=== PATIENT | female | born 1975 | race African-American/Black ===

== ENCOUNTER 2017-07-26 12:29 | Emergency (ER) | payer MEDICAID, OTHER ==
[~2017-07-26] VITALS: Ht 165.1 cm; Wt 86.2 kg
[2017-07-26] MEDS ORDERED: IBUPROFEN600 MG ORAL (13:25)
[2017-07-26 14:11] LABS: APPEARANCE,URINE CLEAR; KETONES,URINE NEGATIVE (NEGATIVE); LEUKOCYTE ESTERASE ,URINE 3+ (NEGATIVE); NITRITE,URINE NEGATIVE (NEGATIVE); PH,URINE 8 (4.5-8.0); PROTEIN,URINE NEGATIVE (NEGATIVE); UROBILINOGEN,URINE NORMAL MG/DL (0.0-1.0)
[2017-07-26 14:23] LABS: BACTERIA,URINE MODERATE /HPF; SQUAMOUS EPITHELIAL CELL,UR FEW /LPF (NONE/OCC); WBC,URINE 20-30 /HPF (0 - 2)
[2017-07-26] MEDS ORDERED: KEFLEX500 MG ORAL (14:24)
[2017-07-26 14:41] VITALS: BP 173/87
[2017-07-26] MEDS ORDERED: Cephalexin 500mg cap ORAL ONE (14:45)
[2017-07-26 15:20] VITALS: BP 166/80
--- NOTE | 2017-07-27 13:02 | Diagnostic Imaging Report ---
Indication: Pain Findings: 2 views of the right femur were obtained. No acute fractures, malalignment, erosions or periostitis are identified. Soft tissues are unremarkable. Impression: Negative examination of the femur
--- NOTE | 2017-07-30 07:53 | Emergency Room Report ---
History of Present Illness General Chief Complaint: Pain Source: Patient, Family Member Present Illness HPI Patient is a 41-year-old female presented after increased right lower extremity pain. The patient reports having increased pain to the right thigh. Patient had the noted to have increased difficulty with getting up from a seated position. She denies any numbness to her extremity. She reports having increased pain to the right lateral thigh. This did not radiate. The pain was worse with movement. She denied recent trauma Allergies: Coded Allergies: No Known Allergies (Unverified , 07/26/17) Patient History Past Medical History: see triage record Last Menstrual Period: 07/16/17 Now: No Reviewed Nursing Documentation: PMH: Agreed, PSxH: Agreed Review of Systems All Other Systems: negative except mentioned in HPI Physical Exam Vital Signs Date Time Temp Pulse Resp B/P (MAP) Pulse Ox O2 Delivery O2 Flow Rate FiO2 07/26/17 12:41 Room Air 07/26/17 14:41 98.1 82 21 173/87 100 General Appearance: well appearing, no apparent distress Head: normocephalic, atraumatic ENT: hearing grossly normal, normal voice Neck: full range of motion, supple Respiratory: normal inspection, no respiratory distress, speaking full sentences Musculoskeletal: no calf tenderness Neurologic: normal gait Psychiatric: mood/affect normal Skin: no rash Medical Decision Making Diagnostic Impression: Primary Impression: Muscle strain Additional Impression: UTI (urinary tract infection) ER Course Patient presented for extremity pain. Differential diagnosis included but was not limited to fracture, contusion, muscle strain, vascular insufficiency, aortic aneurysm, cellulitis. The patient appears to have a benign exam. X-ray imaging of the right femur 2 views interpreted by me showed normal Without evident fracture. Patient was noted to have some soft tissue defect to the right quadriceps. The patient appears to be able to extend her leg. The patient is advised to follow up with primary care doctor in 1-2 days. Patient is advised to return if any worsening condition or if any changes in status that are concerning. This report is dictated with [employer] head piece assembler software which may occasionally lead to discrepancies related to use of this software. Last Vital Signs Date Time Temp Pulse Resp B/P (MAP) Pulse Ox O2 Delivery O2 Flow Rate FiO2 07/26/17 15:20 98.1 78 20 166/80 99 Room Air Status: improved Disposition: HOME, SELF-CARE Condition: Stable Scripts Cephalexin* (KEFLEX*) 500 Mg Capsule 500 MG ORAL Q6H, #28 CAP 0 Refills Prov: Tj Hopkins 07/26/17 Ibuprofen* (MOTRIN*) 600 Mg Tablet 600 MG ORAL Q8H Y for For Pain, #30 TAB 0 Refills Prov: Tj Hopkins 07/26/17 Departure Forms: Return to Work Return to Work in (Days): 2 Other Restrictions: light duty Patient Instructions: Urinary Tract Infection, Muscle Strain Tj Hopkins Jul 30, 2017 07:53
== END 2017-07-26 15:27 | disposition home or self-care (01) ==
LOC: EMR 12:50
DX: S76.111A Strain of right quadriceps muscle, fascia and tendon, initial encounter (principal); N39.0 Urinary tract infection, site not specified; X58.XXXA Exposure to other specified factors, initial encounter; Y92.9 Unspecified place or not applicable
CPT/HCPCS: 81003; 81025; 87086; 87181; 99284